=== PATIENT | female | born 2000 ===

== ENCOUNTER → 2022-12-24 | Outpatient (CLI) | payer BC | END | disposition home or self-care (01) | LOC: LAB 14:41 → LAB SHORT 14:41 | DX: L08.0 Pyoderma (principal) | CPT/HCPCS: 87070; 87077; 87147; 87186; 87205 ==

== ENCOUNTER → 2023-07-07 | Outpatient (CLI) | payer BC, OTHER | LOC: LAB 11:43 → LAB SHORT 11:43 | DX: N39.0 Urinary tract infection, site not specified (principal) | CPT/HCPCS: 87086 ==